=== PATIENT | male | born 1990 | race Caucasian/White ===

== ENCOUNTER 2019-07-25 11:20 | Emergency (ER) | payer OTHER ==
--- NOTE | 2019-07-25 11:47 | EDM.PDOC ---
ED HPI GENERAL MEDICAL PROBLEM - General Chief Complaint: ENT Problem Stated Complaint: SORE THROAT Time Seen by Provider: 07/25/19 11:44 History Limitations: Reports: No Limitations - History of Present Illness INITIAL COMMENTS - FREE TEXT/NARRATIVE: PT ARRIVED WITH A SORE THROAT ON THE LEFT SIDE. hE IS ABLE TO SEE A PATCH OF WHITE IN THE BACK OF HIS THROAT. Onset: Gradual Duration: Hour(s): Location: Reports: Neck, Other (PT HAS A SORE THROAT. ) Associated Symptoms: Reports: Other ( SORE THROAT, ACHY. ) Throat Pain Score (Numeric/FACES): 5 - Related Data Allergies Allergy/AdvReac Type Severity Reaction Status Date / Time No Known Allergies Allergy Verified 07/25/19 11:38 Home Meds: Home Meds NK [No Known Home Meds] 07/25/19 [History] Past Medical History HEENT History: Reports: Impaired Vision - Past Surgical History GI Surgical History: Reports: EGD Social & Family History - Tobacco Use Smoking Status *Q: Current Every Day Smoker Years of Tobacco use: 10 Packs/Tins Daily: 0.5 - Caffeine Use Caffeine Use: Reports: Soda - Alcohol Use Days Per Week of Alcohol Use: 7 Number of Drinks Per Day: 1 Total Drinks Per Week: 7 - Recreational Drug Use Recreational Drug Use: No ED ROS ENT - Review of Systems Review Of Systems: See Below Constitutional: Reports: No Symptoms HEENT: Reports: Throat Pain, Throat Swelling Respiratory: Reports: No Symptoms Cardiovascular: Reports: No Symptoms GI/Abdominal: Reports: No Symptoms : Reports: No Symptoms Musculoskeletal: Reports: No Symptoms Skin: Reports: No Symptoms Neurological: Reports: No Symptoms ED EXAM, ENT - Physical Exam Exam: See Below Text/Narrative:: PT ARRIVED WITH A SORE THROAT ON THE LEFT SIDE. Exam Limited By: No Limitations General Appearance: Alert, Anxious Ears: Normal TMs Nose: Normal Inspection Mouth/Throat: Throat Pain Head: Atraumatic Neck: Other ( SWELLING IN THE LEFT THROAT AREA. ) Respiratory/Chest: No Respiratory Distress Cardiovascular: Regular Rate, Rhythm GI/Abdominal: Soft, Non-Tender (Male) Exam: Deferred Rectal (Males) Exam: Deferred Back: Normal Inspection Extremities: Normal Inspection Neurological: Alert, Oriented, Normal Cognition Course - Vital Signs Last Recorded V/S: Last Vital Signs Temp 36.3 C 07/25/19 11:38 Pulse 68 07/25/19 11:38 Resp 16 07/25/19 11:38 BP 144/90 H 07/25/19 11:38 Pulse Ox 99 07/25/19 11:38 - Orders/Labs/Meds Orders: Active Orders 24 hr Category Date Time Status CULTURE STREP A CONFIRMATION [RM] Stat Lab 07/25/19 11:49 Results STREP SCRN A RAPID W CULT CONF [RM] Stat Lab 07/25/19 11:49 Results - Re-Assessments/Exams Free Text/Narrative Re-Assessment/Exam: 07/25/19 12:17 STREPT IS NEG. WILL AWAIT THE CULTURE. Departure - Departure Time of Disposition: 12:12 Disposition: Home, Self-Care 01 Condition: Fair Clinical Impression: Pharyngitis - Discharge Information Referrals: PCP,None [Primary Care Provider] - Forms: ED Department Discharge Care Plan Goals: PUSH FLUIDS, TYLENOL OR MOTRIN FOR DISCOMFORT.ZITHROMAX 250 2 TABS NOW AND 1 TABD DAILY FOR 5 DAYS. USE SALT WATER TO GARGLE WITH. WILL NOTIFY OF CULTURE RESULT. Sepsis Event Note (ED) - Evaluation Sepsis Screening Result: No Definite Risk - Focused Exam Vital Signs: Vital Signs Temp Pulse Resp BP Pulse Ox 07/25/19 11:38 36.3 C 68 16 144/90 H 99 - My Orders Last 24 Hours: My Active Orders 07/25/19 11:49 CULTURE STREP A CONFIRMATION [RM] Stat STREP SCRN A RAPID W CULT CONF [RM] Stat - Assessment/Plan Last 24 Hours: My Active Orders 07/25/19 11:49 CULTURE STREP A CONFIRMATION [RM] Stat STREP SCRN A RAPID W CULT CONF [RM] Stat
== END 2019-07-25 12:30 | disposition home or self-care (01) ==
LOC: JP.ED 11:20
DX: J02.9 Acute pharyngitis, unspecified (principal); F17.210 Nicotine dependence, cigarettes, uncomplicated
CPT/HCPCS: 87081; 87880-QW; 99283